=== PATIENT | male | born 1985 | race Caucasian/White ===

== ENCOUNTER → 2020-07-11 16:10 | Outpatient (BNVA) | payer OTHER, SELFPAY | PROVIDERS: PCP Preventive Medicine Occupational Medicine; Visit Provider Podiatrist Foot & Ankle Surgery | DX: M79.671 Pain in right foot (principal) | CPT/HCPCS: 73630 ==

== ENCOUNTER 2020-07-11 16:15 | Outpatient (CLI) | payer OTHER, SELFPAY | END 2020-07-11 16:16 | disposition home or self-care (01) | LOC: SPT 07-12 09:02 | PROVIDERS: PCP Preventive Medicine Occupational Medicine; Visit Provider Podiatrist Foot & Ankle Surgery | DX: Z46.89 Encounter for fitting and adjustment of other specified devices (principal); S97.81XD Crushing injury of right foot, subsequent encounter; X58.XXXD Exposure to other specified factors, subsequent encounter | CPT/HCPCS: 97760; L4361 ==

== ENCOUNTER 2020-09-30 04:46 | Emergency (ER) | payer OTHER, SELFPAY ==
[2020-09-30 04:50] VITALS: BP 142/89; PULSE 100; RESP 18; TEMP 36.2; O2SAT 100; BMI 27.2
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
[2020-09-30 05:22] VITALS: PULSE 86
[2020-09-30 05:32] VITALS: RESP 20; O2SAT 99
[2020-09-30] MEDS: oxyCODONE-APAP 5-325 mg Tablet 2 TAB PO (05:32)
[2020-09-30 06:20] VITALS: BP 152/94; PULSE 87; RESP 20; O2SAT 99
--- NOTE | 2020-09-30 06:26 | PC.NURSE ---
i agree with this assessment
== END 2020-09-30 06:26 | disposition home or self-care (01) ==
PROVIDERS: Emergency Provider Emergency Medicine; PCP Preventive Medicine Occupational Medicine
DX: S62.324A Displaced fracture of shaft of fourth metacarpal bone, right hand, initial encounter for closed fracture (principal); S62.336A Displaced fracture of neck of fifth metacarpal bone, right hand, initial encounter for closed fracture; W22.09XA Striking against other stationary object, initial encounter; F17.210 Nicotine dependence, cigarettes, uncomplicated
CPT/HCPCS: 12345; 29125; 73130; 99281; 99283

== ENCOUNTER → 2020-10-03 10:08 | Outpatient (BNVA) | payer OTHER, SELFPAY | PROVIDERS: PCP Preventive Medicine Occupational Medicine; Visit Provider Orthopaedic Surgery | DX: Z20.828 Contact with and (suspected) exposure to other viral communicable diseases (principal); Z01.818 Encounter for other preprocedural examination | CPT/HCPCS: 87635 ==

== ENCOUNTER 2020-10-05 09:33 | Day surgery (SDC) | payer OTHER, SELFPAY ==
[2020-10-04 15:07] VITALS: BMI 24.3
--- NOTE | 2020-10-05 | XR_ITS ---
WS: [id number] Exam: XR hand RT 2V [id number] Date/Time of Exam: 10/05/2020 12:00 AM Reason For Exam: OR PICS AP and lateral C-arm images of the right hand are submitted for evaluation. A dorsal plate and multiple screws now stabilized and oblique fracture through the fourth metacarpal shaft. The fracture is stabilized in anatomic alignment for healing. XR/XR hand RT 2V [id number] IMPRESSION: 1. Satisfactory internal orthopedic fixation involving a fracture of the fourth metacarpal.
--- NOTE | 2020-10-05 | SCC_ITS ---
Procedure Done: Open reduction and internal fixation right ring finger metacarpal 8.1 seconds of fluoroscopic guidance, for a cumulative dose of 0.14 mGy, was provided to Dr. Ramos by the radiology department. C-arm images of the RIGHT hand were saved for the patient's permanent record. [facility]
[2020-10-05 09:52] VITALS: BP 147/84; PULSE 82; RESP 18; TEMP 36.7; O2SAT 98
--- NOTE | 2020-10-05 10:01 | P.ANESASSM_ITS ---
Pre-Anesthetic Assessment Pre-Anesthetic Assessment: Height/Weight: Height 1.78 m Weight 77.111 kg Temp Pulse Resp BP Pulse Ox 98.1 F 82 18 147/84 98 10/05/20 09:52 10/05/20 09:52 10/05/20 09:52 10/05/20 09:52 10/05/20 09:52 Preop Diagnosis: right ring finger metacarpal Proposed Procedure: Operation Date: 10/05/20 10:50 Proposed Procedures p ORIF right 4th Metacarpal fracture 59243 S62.304A(Right) - Johnathan Ramos MD Familial anesthetic complications: NOne Was Beta Rebecca taken within 24 hours: N/A Last intake: Intake Last Liquid Date 10/04/20 Last Liquid Time 22:30 Last Solid Date 10/04/20 Last Solid Time 22:30 Social: Social History: Alcohol and Tobacco Exam: Pre-Anes Outpt Exam: alert, oriented x 3, clear to auscultation bilaterally and regular rate & rhythm Airway: Cervical ROM: WNL MP: 3 Dentition: Chipped and Other (misisng) Anesthetic Plan: ASA status: 2 Anesthesia: MAC and Regional (specify below) Risk of > 500 ml blood loss (7ml/kg in children): No PFSH Anesthesia PFSH: Family History Mother Diabetes Denies family history of CAD (coronary artery disease) Stroke Social History Smoking and tobacco status: current every day smoker Alcohol intake: current Alcohol intake frequency: holidays/special occasions only Current occupational status: employed Current occupation: Supervisor Painting Department Data Anesthesia Cardiac Studies: No Data to Display
[2020-10-05] MEDS: sodium chloride 0.9% 1,000 ML 30 ML IV (10:05)
--- NOTE | 2020-10-05 12:21 | ANES.PROC ---
Anesthesia Procedures Procedure/Date: 10/05/20 Nerve Block ^: Nerve Block 1: Main Anesthesia: general anesthesia Time Out Performed: Yes Consent: requested by attending/covering physician, from patient, risks and benefits reviewed and patient agrees to proceed Nerve block location: axillary (R) Anesthesia monitors applied: pulse oximetry, EKG, BP cuff and oxygen Nerve block position: supine Anesthetic Used: ropivicaine 0.5% and with decadron (4 mg) Amount of anesthesia used (mL): 30 Nerve Stimulator Used?: Yes Interscalene/Femoral BLK: 2 stimuplex 22 g needle used for position and inplane approach, visualize local anesthetic spread and no vascular puncture identified Injection: neg aspiration of heme and paresthesia +/- Patient Tolerated Procedure: well and no complications Complications: none
[2020-10-05] MEDS: midazolam 1 mg/mL INJ 5 ML 5 MG IVP (12:27)
--- NOTE | 2020-10-05 13:09 | W.PM.OPSUD ---
Surgery/Procedure H&P Update DATE OF PROCEDURE: October 05, 2020 DATE H&P PERFORMED: 10/03/20 PREOP DIAGNOSIS: right ring finger metacarpal PLANNED PROCEDURE: Operation Date: 10/05/20 10:50 Proposed Procedures p ORIF right 4th Metacarpal fracture 34005 S62.304A(Right) - Johnathan Ramos MD
--- NOTE | 2020-10-05 14:19 | PM.OP ---
Operative Report Date of procedure: October 05, 2020 Pre-op Diagnosis: right ring finger metacarpal Post-op diagnosis: same Post-op Findings: Same Procedure Done: Open reduction and internal fixation right ring finger metacarpal Implants: Jeannette 2.3 mm locking plate and 7 nonlocking screws Pathology: none sent Surgeon: Johnathan Ramos Anesthesia: MAC and Nerve Block (Axillary canal block) Estimated blood loss (mL): 20 Tourniquet time (min): 34 Complications: None Findings: The patient had an oblique noncomminuted fracture of the right ring finger metacarpal with approximately 70 degrees dorsal angulation and dorsal translation of the distal fracture Condition: stable Procedure: The patient was taken to the operating room after he was given an axillary block. He was given 2 g of Ancef. He is prepped and draped in the usual fashion with a tourniquet on the right arm. A timeout was performed. A 5 cm long incision was made in line with the ring finger metacarpal. Dissection was carried down mobilizing the tensor tendons to the ring finger radially. Periosteum was freed dorsally over the plate bringing this down to fracture fragments. The fracture was brought to length and reduced and provisionally held with a K wire. A Jeannette 2.3 mm straight plate was cut down to 8 holes. It was fixed proximally and distally with 3 bicortical screws and one additional compression screw was placed across the fracture through the 1 center hole. Intraoperative imaging showed satisfactory position of the hardware. The wound was irrigated with saline. Deep tissues were closed with 3-0 Vicryl and the skin with 4-0 nylon.
[2020-10-05 14:22] VITALS: BP 102/88; PULSE 67; RESP 18; TEMP 36.4; O2SAT 94
[2020-10-05 14:48] VITALS: BP 121/71; PULSE 69; RESP 18; O2SAT 96
--- NOTE | 2020-10-05 15:53 | ANE.PACU2 ---
Inpatient post-anesthesia follow up: Airway intact: Yes Vital signs: Temperature 97.5 F Pulse Rate 69 Respiratory Rate 18 Blood Pressure 121/71 Pulse Oximetry 96 Oxygen Delivery Me thod Room Air Oxygen Flow Rate Fraction of Inspir ed Oxygen Hydration adequate: Yes Nausea and vomiting: No Pain level: 1 Mental status: Baseline
== END 2020-10-05 15:40 | disposition home or self-care (01) ==
PROVIDERS: Visit Provider Orthopaedic Surgery
PROC: (CPT 26615; principal; 2020-10-05 10:50)
DX: S62.304A Unspecified fracture of fourth metacarpal bone, right hand, initial encounter for closed fracture (principal); W22.8XXA Striking against or struck by other objects, initial encounter; F17.210 Nicotine dependence, cigarettes, uncomplicated
CPT/HCPCS: 26615; 12345; 64417; 73120; 76000; 76942; 96374; C1713; J0690; J1100; J1885; J2250; J2704; J2795; J3010; J7030

== ENCOUNTER 2020-10-17 15:48 | Outpatient (CLI) | payer OTHER, SELFPAY | END 2020-10-17 15:49 | disposition home or self-care (01) | LOC: SPT 15:49 | PROVIDERS: Visit Provider Orthopaedic Surgery | DX: Z46.89 Encounter for fitting and adjustment of other specified devices (principal); S62.304D Unspecified fracture of fourth metacarpal bone, right hand, subsequent encounter for fracture with routine healing; X58.XXXD Exposure to other specified factors, subsequent encounter | CPT/HCPCS: 97760; L3984 ==